=== PATIENT | male | born 1990 | race Two or more races ===

== ENCOUNTER 2019-06-10 18:24 | Emergency (ER) | payer BC ==
[~2019-06-10] VITALS: Ht 170.2 cm; Wt 72.6 kg
[2019-06-10 18:43] VITALS: BP 109/68
[2019-06-10] MEDS ORDERED: IBUPROFEN 600 MG TABLET PO ONE ×2 (19:27→19:30)
--- NOTE | 2019-06-10 19:31 | NUR ---
Patient discharged to home in stable condition. Written and verbal after care instructions given. Patient verbalizes understanding of instruction.
== END 2019-06-10 19:32 | disposition home or self-care (01) ==
LOC: ER 18:35
DX: J06.9 Acute upper respiratory infection, unspecified (principal); Z60.2 Problems related to living alone